=== PATIENT | male | born 1965 | race Caucasian/White ===

== ENCOUNTER 2017-02-25 19:03 | Emergency (ER) | payer OTHER ==
[~2017-02-25] VITALS: Ht 167.6 cm; Wt 68.2 kg
[~2017-02-25 19:03] MED LIST: AMLO10TA3 PO; AMOX500C2 PO; CARV25TA2 PO; HYDR-4003 PO; TAMS0.4C29 PO; [UNRECOGNIZED DRUG - CODE] PO
[2017-02-25 19:17] VITALS: BP 135/89; PULSE 89; RESP 18; O2SAT 98
--- NOTE | 2017-02-25 21:10 | ED.REPORT ---
HPI-General Illness Date of Service Feb 25, 2017 ED Provider: Dr. Johansen The pt is a 51 y/o male with a hx of HTN, chronic kidney disease, hyperlipidemia , IV drug use with methamphetamines and meningitis (2 years ago) who presents to the ED complaining of posterior leg pain bilaterally, onset this morning. His pain has resolved in the ED. He describes it as a shooting, "bone pain" that starts in his lower back, radiates to and worsens in his legs. He also had some nausea, 2 episodes of vomiting, and chills earlier today, though they have now resolved. He also reports constipation. He denies fever, numbness and tingling in his legs, and fecal and urinary incontinence. Nursing Notes Stated Complaint: PAIN IN BOTH LEGS, VOMITING Chief Complaint: Extremity Trauma Nursing Notes Reviewed: Yes Allergies: Coded Allergies: No Known Allergies (Verified Allergy, Unknown, 02/25/17) Scheduled Amlodipine (Amlodipine) 10 Mg Tablet 10 MG PO DAILY Amoxicillin (Amoxicillin) 500 Mg Capsule 500 MG PO TID Carvedilol (Carvedilol) 25 Mg Tablet 25 MG PO BID Tamsulosin ER (Tamsulosin ER) 0.4 Mg Cap.er.24h 0.4 MG PO HS Scheduled PRN Hydrocodone-Acetaminophen 5-325 mg (Hydrocodone-Acetaminophen 5-325 mg) 1 Each Tablet 1 EACH PO Q6 PRN PRN For Pain Naproxen Sodium (Naproxen Sodium) 550 Mg Tab 550 MG PO BID PRN PRN For Pain General Time Seen by MD: 21:09 Chief Complaint Other (bilateral leg pain) Hx Obtained From: Patient Arrived By: Walk-in Sudden in Onset?: Yes Onset Occurred: 5 - 8 hours ago Symptom Duration: Since onset Location: : Leg left: Leg right Quality: Painful Severity: Current: No pain currently Severity: Maximum: Severe Recent Healthcare: No recent doctor visit Past Medical History Past Medical History Notes: PCP: Dr. Tanner Past Medical History 1. Uncontrolled hypertension. 2. Appreciably acute renal failure, with underlying chronic kidney disease, stage V. 3. Chronic urinary retention of unclear etiology. 4. Systolic and diastolic heart failure. 5. Hyperlipidemia. 6. Tobacco abuse. 7. IV drug use with methamphetamines. Hepatitis serologies are negative, but the patient has not had an HIV test. 8. Menengitis Reports: Hypertension Past Surgical History None reported Smoking History Current Every Day Smoker Social History Alcohol Use: Denies alcohol use Drug Use: IV drugs, Meth Other Social History: Local resident Ambulatory Status Independent Review of Systems Denies: numbness and tingling in his lower extremities Denies: fecal and urinary incontinence Full Review of Systems Constitutional: Reports: Chills, Denies: Fever GI: Reports: Constipation, Nausea, Vomiting Musculoskeletal: Reports: Extremity pain (bilateral leg pain) Complete sys rev & neg: except as marked. Physical Exam Vital Signs Vital Signs Date Time Temp Pulse Resp B/P Pulse Ox O2 Delivery O2 Flow Rate FiO2 02/26/17 01:53 79 20 136/87 96 Room Air 02/25/17 23:42 74 14 99 Room Air 02/25/17 19:17 37.4 89 18 135/89 98 Room Air Initial VS: Reviewed Head / Eyes: Atraumatic, Normocephalic Neck: Supple, Non-tender, Full range of motion Respiratory: Breath sounds normal, Clear to auscultation, No respiratory distress Abdomen / GI: Soft, Non-tender, No guarding, No rebound, No distention Extremities: Vascular intact, Neuro intact, No swelling, No tenderness Skin: Warm, Dry, No cyanosis Neurologic: Alert, Oriented, Nonfocal Appearance / Presentation: Positive: Intoxicated The pt is drowsy but arousable. Head / Eyes: Atraumatic, Normocephalic ENT: Atraumatic, Mucous membranes moist, Pharynx NL Cardiovascular: Heart rate NL, Regular rhythm, No gallop, No rubs The pt has II/ systolic murmur. Back: Atraumatic, Full range of motion Pt has mild lower back tenderness. Interpretation & Diagnostics PROCEDURE: MRI LUMBAR SPINE WITHOUT CONTRAST ([id number]) IMPRESSION: 1. Mild lumbar spine degenerative change causes mild/moderate right L4-5 and left L2-3 neural foraminal narrowing. No significant central spinal canal narrowing. 2. Chronic L2 compression fracture with approximately 25% height loss causing focal reversal of the normal lumbar lordosis. 3. Severe left and moderate right hydronephrosis and ureterectasis with a significantly enlarged bladder most consistent with outlet obstruction. Consider correlation with catheterization. Dictated by: Louie Yen M.D. on 02/25/2017 at 21:59 Approved by: Louie Yen M.D. on 02/25/2017 at 22:11 Lab Results Interpretation Result Diagram: 02/25/17 2216 02/25/17 2216 Test 02/25/17 22:16 02/25/17 23:59 White Blood Count 10.1th/mm3 (3.8-10.1) Red Blood Count 4.53mil/mm3 (4.40-5.80) Hemoglobin 13.1g/dL (13.8-17.2) Hematocrit 39.5% (41.0-50.0) Mean Corpuscular Volume 87fL (81-100) Mean Corpuscular Hemoglobin 28.9pg (27.0-35.0) Mean Corpuscular Hemoglobin Concent 33.2% (32.0-37.0) Red Cell Distribution Width 15.1% (12.3-15.4) Platelet Count 245bil/L (150-400) Neutrophils (%) (Auto) 82.1% (40-74) Lymphocytes (%) (Auto) 9.4% (14-46) Monocytes (%) (Auto) 7% (4-12) Eosinophils (%) (Auto) 1.1% (0-5) Basophils (%) (Auto) 0.4% (0-3) Erythrocyte Sedimentation Rate 9mm/hr (0-15) Prothrombin Time 9.9sec (8.1-12.5) Prothromb Time International Ratio 0.93ratio Activated Partial Thromboplast Time 29.2sec (22.8-33.0) Sodium Level 139mEq/L (134-144) Potassium Level 4.2mEq/L (3.5-5.2) Chloride Level 99mEq/L (97-108) Carbon Dioxide Level 24mmol/L (18-29) Blood Urea Nitrogen 29mg/dL (6-24) Creatinine 1.76mg/dL (0.76-1.27) Estimat Glomerular Filtration Rate 44mL/min (>59) Glucose Level 114mg/dL (60-99) Lactic Acid Level 1.1mmol/L (0.4-2.0) Calcium Level 8.9mg/dL (8.5-10.1) Magnesium Level 1.9mg/dL (1.6-2.6) Total Bilirubin 0.3mg/dL (0.0-1.2) Aspartate Amino Transf (AST/SGOT) 23U/L (0-50) Alanine Aminotransferase (ALT/SGPT) 18U/L (0-44) Alkaline Phosphatase 91U/L (25-150) Total Creatine Kinase 123U/L (21-232) Troponin T 0.010ug/L (0.0-0.011) C-Reactive Protein 0.5mg/dL (0.0-0.5) Pro-B-Type Natriuretic Peptide 152.4pg/mL (0-121) Total Protein 6.2g/dL (6.4-8.4) Albumin 3.5g/dL (3.4-5.0) Procalcitonin 8.04ng/mL (0.00-0.08) Urine Color Yellow (YELLOW) Urine Appearance Clear (CLEAR,HAZY) Urine pH 7.5 (5.0-8.0) Urine Specific Mott 1.010 (1.003-1.035) Urine Protein Negativemg/dL (NEG,TRACE) Urine Glucose (UA) Negativemg/dL (NEGATIVE) Urine Ketones Negativemg/dL (NEGATIVE) Urine Occult Blood Negative (NEGATIVE) Urine Nitrite Negative (NEGATIVE) Urine Bilirubin Negative (NEGATIVE) Urine Urobilinogen Normalmg/dL (NORMAL) Urine Leukocyte Esterase Negative (NEGATIVE) Urine RBC 0-2/hpf (0-2) Urine WBC 0-5/hpf (0-5) Urine Epithelial Cells Few/hpf (NONE-MOD) Urine Crystals None seen (NONE SEEN) Urine Bacteria Few/hpf (NONE-FEW) Urine Hyaline Casts None/lpf (NONE) Urine Granular Casts None seen (NONE SEEN) Urine Waxy Casts None seen (NONE SEEN) Urine Red Blood Cell Casts None seen (NONE SEEN) Urine White Blood Cell Casts None seen (NONE SEEN) Urine Mucus None seen (None Seen) Urine Trichomonas None seen (NONE SEEN) Urine Yeast None (NONE SEEN) Urinalysis Comment None Urine Culture Reflexed Not indicated X-Ray Chest Interpretation Chest Xray Interpretation: IMPRESSION: No acute process. Dictated by: Chanda Strickland M.D. on 02/25/2017 at 21:47 Approved by: Chanda Strickland M.D. on 02/25/2017 at 21:48 View: Portable, 1 view Interpretation / Wet Read by: Interpret - Radiologist Re-Eval/Medical Decision Med Decision/Clinical Course 51-year-old IV drug user presents with low back pain radiating down his legs. He denies any urinary symptoms initially. He has had some constipation recently. He has had subjective fever but is not febrile here. Concern for possible epidural abscess prompted an MRI. This revealed only bilateral hydronephrosis and urinary retention. Medeiros was placed at that point in relieved him of 800 mL of urine. Urinalysis is unremarkable with no evidence of infection. He is alert he notes Dr. Lima which and is referred again to Dr. Lopez for follow-up. A left in place with leg bag and large bag provided Source of Hx: Old records Time of Eval: 01:45 Patient Status: Condition improved Re-Evaluation/Progress Note: Pt pain improved. Discussed plan for discharge. Pt understands and agrees with plan. Counseled Regarding: Diagnosis, Lab results, Need for follow-up, When/why to return to ED Discharge & Departure Primary Impression: Urinary retention Additional Impressions: Hydronephrosis Hydronephrosis type: unspecified Qualified Code: N13.30 - Unspecified hydronephrosis Back pain Back pain location: back pain in unspecified location Chronicity: unspecified Back pain laterality: unspecified Qualified Code: M54.9 - Dorsalgia, unspecified Methamphetamine abuse Renal insufficiency Disposition: Home Discharge Condition All VS Reviewed: Yes Condition: Improved Patient Instructions: Medeiros Catheter Placement and Care (ED), Urinary Retention in Men (ED) Additional Instructions: Call 's office Tuesday morning. Leave the Medeiros catheter in place. Use a large bag at night and the leg bag by day. There is no evidence of infection at this point. Follow-up also with her regular doctor. Return if any immediate issues over the weekend. Referrals: Faisal Tanner MD (PCP) Luis Ayala MD Scribe Attestation Portions of this note were transcribed by Magan Vergara. Dr.Roberts Leander, personally performed the history,physical exam and medical decision-making;I reviewed and confirmed the accuracy of the information in the transcribed note. Signed by Shelbie Thomas. 02/25/17 Portions of this note were transcribed by Jerica Garnica. Dr. Eleno Tabor personally performed the history, physical exam and medical decision-making; I reviewed and confirmed the accuracy of the information in the transcribed note. Signed by: Shelbie Claire, 02/26/2017. copies to: Faisal Tanner MD; Luis Ayala MD, Christopher W MD Feb 25, 2017 21:10 Magan Vergara Feb 25, 2017 21:19 JERICA GARNICA Feb 26, 2017 00:51
[2017-02-25] MEDS ORDERED: 0.9% Sodium Chloride 1,000 ML IV ONE (21:17)
--- NOTE | 2017-02-25 21:49 | DRSVH ---
PROCEDURE: X-RAY CHEST ONE VIEW, PORTABLE ([id number]) INDICATIONS: back pain, ivda TECHNIQUE: One view of the chest was acquired. COMPARISON: [facility], , CHEST 1VW (PORTABLE), 10/11/2014, 14:57. [facility], CR, CHEST 1VW (PORTABLE), 10/07/2014, 17:00. FINDINGS: Surgical changes and devices: None. Lungs and pleura: No pleural effusions or pneumothorax. Lungs are clear. Mediastinum: Mediastinal contours appear normal. Heart size is normal. Bones and chest wall: No suspicious bony lesions. Overlying soft tissues appear unremarkable. IMPRESSION: No acute process. Dictated by: Chanda Strickland M.D. on 02/25/2017 at 21:47 Approved by: Chanda Strickland M.D. on 02/25/2017 at 21:48
--- NOTE | 2017-02-25 22:13 | DRSVH ---
PROCEDURE: MRI LUMBAR SPINE WITHOUT CONTRAST ([id number]) INDICATIONS: ivda back pain radiating to legs TECHNIQUE: Noncontrast sagittal T1 spin echo and T2 fast echo, sagittal STIR, axial T1 and T2 fast spin echo thr ough the lumbar spine. In cases with scoliosis, additional coronal T2 fast spin echo may be performe d. COMPARISON: [facility], CT, ABD/PELVIS W/O CON (PNL), 03/18/2014, 21:03. FINDINGS: Image quality: Excellent. Alignment and Curvature: There is grade 1 retrolisthesis of L2-3. Reversal of the normal lumbar cur vature centered at a chronic appearing L2 vertebral body compression fracture. Otherwise normal lumb ar vertebral alignment. Bone Marrow: Marrow is of normal overall signal. No acute vertebral body compression fractures. Spinal Cord: Conus medullaris terminates at the L1 level. Visualized cord demonstrates normal signa l and size. Paraspinous Soft Tissues: No paravertebral masses. A partially visualized bladder is larger than ex pected. There is moderate/severe left and mild/moderate right hydronephrosis and ureterectasis. L1-L2: Moderate intervertebral body disc height loss and broad-based posterior disc bulge. Central spinal canal and neural foramina are patent. L2-L3: Mild intervertebral body disc height loss with broad-based posterior disc bulge. Mild facet joint and ligamentum flavum hypertrophy. There is mild/moderate left neuroforaminal narrowing. The right neural foramen and central spinal canal are patent. Superior L2 vertebral body endplate Schmor l's node. L3-L4: Mild intervertebral body disc height loss. Broad-based posterior disc bulge. Ligamentum fla vum and facet joint hypertrophy. Findings cause mild right neural foraminal narrowing. The left marielle ral foramen and central spinal canal are patent. L4-L5: Mild/moderate intervertebral body disc height loss. Schmorl's node in the superior L5 verteb ral body endplate. Facet joint and ligamentum flavum hypertrophy. Findings cause mild/moderate righ t and mild left neural foraminal narrowing.. L5-S1: Minimal intervertebral body disc height loss broad-based posterior disc bulge. Facet joint a nd ligamentum flavum hypertrophy. The spinal canal and neural foramina are patent. IMPRESSION: 1. Mild lumbar spine degenerative change causes mild/moderate right L4-5 and left L2-3 neural foramin al narrowing. No significant central spinal canal narrowing. 2. Chronic L2 compression fracture with approximately 25% height loss causing focal reversal of the n ormal lumbar lordosis. 3. Severe left and moderate right hydronephrosis and ureterectasis with a significantly enlarged blad betito most consistent with outlet obstruction. Consider correlation with catheterization. Dictated by: Louie Yen M.D. on 02/25/2017 at 21:59 Approved by: Louie Yen M.D. on 02/25/2017 at 22:11
[2017-02-25 22:30] LABS: Mean Corpuscular Hemoglobin 28.9 pg (27.0-35.0); Mean Corpuscular Volume 87 fL (81-100)
[2017-02-25 22:31] LABS: BASOPHILS % (AUTO) 0.4 % (0-3); EOSINOPHILS % (AUTO) 1.1 % (0-5); MONOCYTES % (AUTO) 7 % (4-12); NEUTROPHILS % (AUTO) 82.1 % (40-74); Platelet Count 245 bil/L (150-400)
[2017-02-25 22:39] LABS: ERYTHROCYTE SEDIMENTATION RATE 9 mm/hr (0-15)
[2017-02-25 22:44] LABS: INR 0.93 ratio
[2017-02-25 23:00] LABS: TROPONIN T 0.01 ug/L (0.0-0.011)
[2017-02-25 23:11] LABS: Magnesium 1.9 mg/dL (1.6-2.6)
[2017-02-25 23:42] VITALS: PULSE 74; RESP 14; O2SAT 99
[2017-02-26 00:23] LABS: APPEARANCE,URINE CLEAR (CLEAR,HAZY); COLOR,URINE YELLOW (YELLOW); OCCULT BLOOD,URINE NEGATIVE (NEGATIVE); PH,URINE 7.5 (5.0-8.0); UROBILINOGEN,URINE NORMAL (NORMAL)
[2017-02-26 01:53] VITALS: BP 136/87; PULSE 79; RESP 20; O2SAT 96
== END 2017-02-26 01:55 | disposition home or self-care (01) ==
LOC: SED 19:03
DX: R33.9 Retention of urine, unspecified (principal); N13.30 Unspecified hydronephrosis; N28.9 Disorder of kidney and ureter, unspecified; M54.5 Low back pain; F15.10 Other stimulant abuse, uncomplicated; K59.00 Constipation, unspecified; I13.2 Hypertensive heart and chronic kidney disease with heart failure and with stage 5 chronic kidney disease, or end stage renal disease; I50.40 Unspecified combined systolic (congestive) and diastolic (congestive) heart failure; N18.5 Chronic kidney disease, stage 5; E78.5 Hyperlipidemia, unspecified; F17.200 Nicotine dependence, unspecified, uncomplicated
CPT/HCPCS: 36415; 51702; 71010; 72148; 80053; 81000; 82550; 83605; 83735; 83880; 84145; 84484; 85025; 85610; 85651; 85730; 86140; 87040; 96361; 96374; 99285; J1885; J7030